=== PATIENT | female | born 1955 | race Caucasian/White ===

== ENCOUNTER → 2017-12-25 10:46 | Outpatient (CLI) | payer OTHER, SELFPAY ==
[2017-12-25 11:18] VITALS: BP 170/86; PULSE 73; RESP 16; TEMP 37.1; O2SAT 100; BMI 21.9
[2017-12-25] MEDS: Zoledronic Acid 5 MG 100 ML 200 MG IV (11:33)
== END ==
PROVIDERS: Family Provider Family Medicine; PCP Family Medicine; Visit Provider Family Medicine
DX: M80.00XA Age-related osteoporosis with current pathological fracture, unspecified site, initial encounter for fracture (principal)
CPT/HCPCS: 96365; J7050; A4216; J3489

== ENCOUNTER → 2018-04-15 11:26 | Outpatient (CLI) | payer OTHER, SELFPAY ==
[2018-04-15 16:07] LABS: Erythrocyte Sedimentation Rate 6 mm/hr (0-30)
[2018-04-15 18:39] LABS: CRP < 2.90 mg/L (0.0-3.0); Rheumatoid Factor < 10.0 IU/mL (<15)
[2018-04-18 09:24] LABS: CCP IgG Antibodies 13 units (0-19)
== END ==
PROVIDERS: Family Provider Family Medicine; PCP Family Medicine; Visit Provider Family Medicine
DX: M25.50 Pain in unspecified joint (principal); M79.1 Myalgia
CPT/HCPCS: 36415; 85652; 86038; 86140; 86200; 86431

== ENCOUNTER → 2018-05-21 12:29 | Outpatient (CLI) | payer OTHER, SELFPAY | PROVIDERS: Family Provider Family Medicine; PCP Family Medicine; Visit Provider Family Medicine | DX: M80.00XA Age-related osteoporosis with current pathological fracture, unspecified site, initial encounter for fracture (principal); Z12.31 Encounter for screening mammogram for malignant neoplasm of breast | CPT/HCPCS: 77063; 77067; 77080 ==

== ENCOUNTER → 2018-07-07 10:46 | Outpatient (CLI) | payer OTHER, SELFPAY ==
--- NOTE | 2018-07-07 10:48 | VDLE_ITS ---
Reason For Study: Follow up RLE DVT previous exam not available RIGHT LEFT GSV is normal. CFV is compressible, spontaneous, phasic, CFV, FV, PopV, T/P Trunk are partially competent, and demonstrates normal compressible with bright intaluminal echoes, augmentation. diminished blood flow and response to augmentation. Consistent with Chronic clot. PTV is compressible. RT PerV is compressible. Procedure Exam performed in department. A preliminary report was called and/or faxed to Dr. Birmingham. Interpretation Summary Chronic venous changes are noted in the right common femoral vein, femoral vein, popliteal vein, and tibio-peroneal trunk, which are partially compressible and demonstrate bright intraluminal echogenicity. The right posterior tibial vein and peroneal vein are patent and compressible. The right greater saphenous vein appears patent and compressible segmentally. Ordering Physician: Yara Birmingham Referring Physician: Yara Birmingham Performed By: Emelina Ramírez RVT and Student
== END ==
PROVIDERS: Family Provider Family Medicine; PCP Family Medicine; Referring Provider Family Medicine; Visit Provider Family Medicine
DX: I82.411 Acute embolism and thrombosis of right femoral vein (principal); I82.431 Acute embolism and thrombosis of right popliteal vein
CPT/HCPCS: 93971

== ENCOUNTER → 2018-07-10 11:29 | Outpatient (CLI) | payer OTHER, SELFPAY ==
[2018-07-10 18:12] LABS: Absolute Lymphocyte Count 0.75 X10^3/ul (0.83-4.51); Absolute Neutrophil Count 2.4 X10^3/uL (2.0-7.7); Basophil# 0.03 X10^3/uL; Basophil% 0.8 % (0-1); Eosinophil# 0.05 X10^3/uL; Eosinophils% 1.4 % (0-5); Hemoglobin 10.4 g/dl (12.0-15.0); Lymphocyte # 0.75 X10^3/ul (4.0); Lymphocyte % 20.3 % (19-41); Mean Corp Hgb Conc 32.5 g/gl (32-36); Mean Corpuscular Hgb 26.4 pg (27.0-32.0); Mean Corpuscular Volume 81.2 fL (81-99); Mean Platelet Vol. 10.7 fl (6.2-12.0); Monocyte# 0.47 X10^3/uL; Monocyte% 12.7 % (0-10); Neutrophil % 64.8 % (47-70); Platelet Count 276 K/mm3 (150-450); RBC Distribution Width CV 16.6 % (11.6-14.6); RBC Distribution Width SD 48.4 fl (35.1-43.9); Red Blood Count 3.94 M/mm3 (4.2-5.4); White Blood Count 3.7 K/mm3 (4.4-11.0)
[2018-07-10 18:13] LABS: POSITIVE COUNT NO; POSITIVE DIFFERENTIAL NO; POSITIVE MORPHOLOGY NO
== END ==
PROVIDERS: Family Provider Family Medicine; PCP Family Medicine; Visit Provider Family Medicine
DX: J44.9 Chronic obstructive pulmonary disease, unspecified (principal); I82.511 Chronic embolism and thrombosis of right femoral vein; I82.591 Chronic embolism and thrombosis of other specified deep vein of right lower extremity
CPT/HCPCS: 36415; 80053; 85025

== ENCOUNTER → 2018-07-23 07:41 | Outpatient (CLI) | payer OTHER, SELFPAY ==
--- NOTE | 2018-07-23 07:45 | CT_ITS ---
STUDY: LOW DOSE CT LUNG CANCER SCREENING REASON FOR EXAM: Female, 63 years old. 40 pack-year smoking history now stopped. History of colorectal cancer with chemotherapy and radiation. RADIATION DOSAGE (If Supplied By Facility): CTDIvol = ( 2.01 ) mGy, DLP = ( 70.47 ) mGycm TECHNIQUE: No contrast was administered. Low dose technique was utilized (average mAS-38 and kVp 120). 1.25 mm axial source images with a slice interval of 1.25-mm were reconstructed in lung windows. 2.5 mm axial source images with a slice interval of 2.5-mm were reconstructed in lung windows. 5.0 mm axial source images with a slice interval of 5.0-mm were reconstructed in soft tissue windows. Nodule measured using lung windows on PACS and/or independent workstation with automated measurement of minimum and maximum diameter. Nodule measurement reported as average diameter rounded to the nearest whole number. Growth is defined as an increase ins size of greater than 1.5 mm. COMPARISON: CTA of the chest, December 27, 2013. NODULES: Nodule #: 1 Density: Solid Lung location: Right upper lobe: 0.4 cm from pleura Location in series: Series Number: 2 Image: 44 Size - D1 x D2 mm: 2 x 2 mm: 2 mm average diameter Margin: Smooth Shape: Rounded Calcification: No Fat: No Temporal comparison: None Nodule #: 2 Density: Solid Lung location: Left upper lobe: 0.2 cm from pleura Location in series: Series Number: 2 Image: 46 Size - D1 x D2 mm: 3 x 2 mm: 3 mm average diameter Margin: Smooth Shape: Oval Calcification: No Fat: No Temporal comparison: None Nodule #: 3 Density: Solid Lung location: Left upper lobe: 0.6 cm from pleura Location in series: Series Number: 2 Image: 100 Size - D1 x D2 mm: 5 x 2 mm: 5 average diameter Margin: Smooth Shape: Stellate Calcification: No Fat: No Temporal comparison: Stable Nodule #: 4 Density: Sagittal Lung location: Right upper lobe: 0.5 cm from pleura Location in series: Series Number: 2 Image: 101 Size - D1 x D2 mm: 2 x 2 mm: 2 mm average diameter Margin: Smooth Shape: Round Calcification: No Fat: No Temporal comparison: Stable Nodule #: 5 Density: Solid Lung location: Left upper lobe: 3.2 cm from pleura Location in series: Series Number: 2 Image: 1 Size - D1 x D2 mm: 6 x 6 mm: 6 average diameter Margin: Smooth Shape: Round Calcification: Yes Fat: No Temporal comparison: Stable Total lung nodules (excluding granulomas): 4 Emphysema: There is diffuse emphysematous changes lungs. There is stable scarring in both upper lobes. There are scattered blebs throughout both lungs unchanged from the prior exam. Endobronchial lesion: None Aorta: There is atherosclerotic tortuosity of the aorta without aneurysm. Coronary arteries: There are stable coronary artery calcifications. Heart: The heart is normal in size. Pulmonary artery: Normal Mediastinal nodes: There are calcified mediastinal and right hilar lymph nodes. Other chest and abdominal findings: There are minimal degenerative changes of the thoracic spine CT/Low Dose CT Lung Screening IMPRESSION: Lung-RADS category 2 - Continue annual screening with LDCT in 12 months. IMPORTANT NOTES FOR USE: ACR Lung-RADS Version 1.0 Assessment Categories Release Date: January 17, 2014 Category: Coded 0-4 bases on nodule(s) with highest degree of suspicion. Negative screen is defined as categories 1 and 2; a positive screen is defined as categories 3 and 4. Category 3 and 4A nodules that are unchanged on interval CT should be coded as category 2, and individuals returned to screening in 12 months. Category 4X: Category 3 or 4 nodules with additional imaging findings that increase the suspicion of lung cancer, such as spiculation, GGN that doubles in size in 1 year, enlarged lymph notes, etc. Category Modifiers: S (significant finding unrelated to lung cancer) and C (prior history of treated lung cancer) may be added to the 0-4 Lung-RADS Electronically Signed: Julius Zeng DO at 21:49 EDT Tel [phone], Service support ,
== END ==
PROVIDERS: Family Provider Family Medicine; PCP Family Medicine; Referring Provider Family Medicine; Visit Provider Family Medicine
DX: Z12.2 Encounter for screening for malignant neoplasm of respiratory organs (principal); Z87.891 Personal history of nicotine dependence
CPT/HCPCS: G0297

== ENCOUNTER → 2018-12-25 10:49 | Outpatient (CLI) | payer OTHER, SELFPAY ==
[2018-12-25 11:03] VITALS: BP 151/73; PULSE 65; RESP 16; TEMP 36.8; O2SAT 98
[2018-12-25] MEDS: Zoledronic Acid 5 MG 100 ML 300 MG IV (11:16)
== END ==
PROVIDERS: Family Provider Family Medicine; PCP Family Medicine; Referring Provider Family Medicine; Visit Provider Family Medicine
DX: M80.00XA Age-related osteoporosis with current pathological fracture, unspecified site, initial encounter for fracture (principal)
CPT/HCPCS: 96365; A4216; J3489

== ENCOUNTER → 2019-02-12 08:54 | Outpatient (CLI) | payer OTHER, SELFPAY ==
[2019-02-11 15:41] LABS: Anion Gap 10 (5-15); BUN 6 mg/dL (7-18); BUN/Creat Ratio 7.3 RATIO (10-20); Calcium,Total 8.6 mg/dL (8.5-10.1); Chloride 103 mmol/L (98-107); Creatinine, Serum 0.82 mg/dL (0.55-1.02); EST Glomerular Filtration Rate 75 mL/min (>60); Est Glom Filt Rate - Afr Amer 91 mL/min (>60); Glucose 85 mg/dL (74-106); Potassium 3.2 mmol/L (3.5-5.1); Sodium Level 140 mmol/L (136-145)
[2019-02-12] VITALS (7 sets, daily range): BP systolic 125–145; BP diastolic 57–73; PULSE 70–87; RESP 14–16; TEMP 36.2–36.9; O2SAT 97–100; BMI 21.1
== END ==
PROVIDERS: Family Provider Family Medicine; PCP Family Medicine; Referring Provider Family Medicine; Visit Provider Family Medicine
DX: D64.9 Anemia, unspecified (principal); I10 Essential (primary) hypertension
CPT/HCPCS: 36415; 36430; 80048; 86850; 86900; 86920; 86922; J7040; P9016; A4216

== ENCOUNTER → 2019-02-22 | Outpatient (CLI) | payer OTHER, SELFPAY ==
[2019-02-12 09:11] VITALS: BMI 21.1
--- NOTE | 2019-02-22 12:13 | CT_ITS ---
STUDY: CT CHEST/THORAX WITH CONTRAST REASON FOR EXAM: Female, 63 years old. Colon cancer. Check for metastatic disease. RADIATION DOSAGE (If Supplied By Facility): CTDIvol = ( 5.52 ) mGy, DLP = ( 170.80 ) mGycm TECHNIQUE: Transaxial imaging was performed following intravenous administration of 100 IV Isovue 300. Multiplanar coronal and sagittal images were reformatted. Individualized dose optimization techniques were used for this CT. COMPARISON: Low-dose screening CT chest July 23, 2018. FINDINGS: Centrilobular emphysematous changes again seen, predominating in the mid to upper lung zones. Stable pleural-parenchymal scarring in the lung apices, with a curvilinear component again extending into the anterior left upper lobe. Focal 1-2 mm nodular components of this scarring in the upper lobes unchanged. Minor curvilinear scarring also in the right middle lobe. Stable mildly irregular shape subcentimeter focal density in the lateral periphery of the left upper lobe on series 4 image 51. Stable subcentimeter calcified granuloma in the inferior periphery of the right upper lobe at the midlung. 2 mm nodular density seen previously in the periphery of the right upper lobe is no longer apparent. No new demonstrated infiltrate, mass, or nodule There is no demonstrated pleural abnormality. The heart size is upper normal. There is some calcification in the aortic and mitral valve annuli. Normal pericardium. There are stable calcifications of the coronary arteries. Normal mediastinum. There is stable calcified lymph nodes in the left hilum. Stable elongated, eccentric along the upper lobe branch of the left pulmonary artery calcification. There is stable atherosclerotic calcification of the aortic arch and descending thoracic aorta. The patient is positioned with a mild upper mid thoracic dextroscoliosis. Occasional coarse calcifications again seen in the tissues of the breast. Stable exophytic cortical cyst at the upper pole of the right kidney. CT/Chest WITH Contrast IMPRESSION: Stable enhanced CT Chest examination since July 23, 2018 with no new findings to suggest thoracic metastatic disease. Electronically Signed: Terence Hoang MD at 13:20 EDT , Service support ,
== END | disposition home or self-care (01) ==
LOC: CT 12:12
PROVIDERS: Family Provider Family Medicine; PCP Family Medicine; Referring Provider Family Medicine; Visit Provider Family Medicine
DX: R13.10 Dysphagia, unspecified (principal)
CPT/HCPCS: 71260; Q9967; A4216

== ENCOUNTER → 2019-03-29 10:57 | Outpatient (CLI) | payer OTHER, SELFPAY ==
[2019-02-12 09:11] VITALS: BMI 21.1
[2019-03-29 12:18] LABS: Magnesium 1.6 mg/dL (1.6-2.6)
== END ==
LOC: LAB.FUTURE 09-29 00:33 → BFHLAB 10-29 14:35
PROVIDERS: Family Provider Family Medicine; PCP Family Medicine; Visit Provider Family Medicine
DX: E83.42 Hypomagnesemia (principal)
CPT/HCPCS: 36415; 83735

== ENCOUNTER 2019-05-28 13:24 | Emergency (ER) | payer OTHER, SELFPAY ==
[2019-02-12 09:11] VITALS: BMI 21.1
[2019-05-28 13:25] VITALS: BP 134/61; PULSE 95; RESP 18; TEMP 36.3; O2SAT 96; BMI 18.3
[2019-05-28] MEDS: 0.9% Normal Saline 1,000 ML 1000 ML IV (15:30)
[2019-05-28 15:31] VITALS: BP 137/57; PULSE 90; RESP 12; O2SAT 99
[2019-05-28 15:43] LABS: Absolute Lymphocyte Count 0.59 X10^3/uL (0.83-4.51); Absolute Neutrophil Count 5.9 X10^3/uL (2.0-7.7); Basophil# 0.03 X10^3/uL; Basophil% 0.4 % (0-1); Eosinophil# 0.06 X10^3/uL; Eosinophils% 0.8 % (0-5); Hematocrit 29.6 % (37-47); Hemoglobin 10.1 g/dL (12.0-15.0); Lymphocyte # 0.59 X10^3/ul (4.0); Lymphocyte % 8.1 % (19-41); Mean Corp Hgb Conc 34.1 g/dL (32-36); Mean Corpuscular Hgb 29.3 pg (27.0-32.0); Mean Corpuscular Volume 85.8 fL (81-99); Mean Platelet Vol. 8.5 fl (6.2-12.0); Monocyte# 0.69 X10^3/uL; Monocyte% 9.4 % (0-10); NRBC Flagged by Analyzer 0 % (0-5); Neutrophil # 5.92 X10^3/uL (2.7-7.7); Neutrophil % 80.9 % (47-70); POSITIVE DIFFERENTIAL YES; Platelet Count 288 K/mm3 (150-450); RBC Distribution Width CV 14.2 % (11.6-14.6); RBC Distribution Width SD 43.6 fl (35.1-43.9); Red Blood Count 3.45 M/mm3 (4.2-5.4); White Blood Count 7.3 K/mm3 (4.4-11.0)
[2019-05-28 16:02] LABS: Lactic Acid 0.6 mmol/L (0.4-2.0)
[2019-05-28 16:12] LABS: Anion Gap 11 (5-15); BUN 4 mg/dL (7-18); BUN/Creat Ratio 9.5 RATIO (10-20); Calcium,Total 7.3 mg/dL (8.5-10.1); Chloride 102 mmol/L (98-107); Creatinine, Serum 0.42 mg/dL (0.55-1.02); EST Glomerular Filtration Rate 163 mL/min (>60); Est Glom Filt Rate - Afr Amer 197 mL/min (>60); Estimated Creatinine Clearance 96.46 ml/min; Glucose 84 mg/dL (74-106); Potassium 2.6 mmol/L (3.5-5.1); Sodium Level 140 mmol/L (136-145)
[2019-05-28 16:15] LABS: Platelet Estimate ADEQUATE (ADEQ)
[2019-05-28 16:18] LABS: Anisocytosis RARE
--- NOTE | 2019-05-28 17:40 | NURSING ---
DR CABELLO IN ER
--- NOTE | 2019-05-28 17:40 | NURSING ---
MED SURG DESTINEY DIARRHEA, DEHYDRATION, HYPOKALEMIA, JYPOMAGNESEMIA
--- NOTE | 2019-05-28 17:41 | ED.DCSUM_ITS ---
- ER Visit Summary Date of Service: 05/28/19 Chief Complaint: [Diarrhea] History of Present Illness: The patient is a 64 F [resents the emergency department with diarrhea started yesterday. Patient states she was treated for C. difficile 1 month ago. Patient also states that her fingers have been curling and she is worried that her potassium and magnesium will be low. Patient denies any nausea or vomiting. She denies any fevers. Denies recent antibiotic other than what she was treated for her C. difficile with and she does not know what she was treated with. She denies significant abdominal pain although she describes some mild cramping.] Patient apparently sat in the parking lot for about 3 hours prior to coming into the emergency department she was covered in stool. Physical Examination: HEENT-PERRLA, EOMI. Cranial nerves II through XII grossly intact. TMs clear. Mucous membranes moist. No adenopathy. Cardiovascular-regular rate and rhythm without murmur or ectopy Lungs-clear to auscultation, chest wall stable without crepitus or subcu emphysema Abdomen-normoactive bowel sounds, soft, nontender, no rebound or rigidity, no peritoneal signs. Extremities-intact ?4, normal range of motion, normal pulses, atraumatic [] Test Results: CBC with differential shows a white count 7.3, hemoglobin 10, hematocrit 29.6. Chemistry showed a sodium of 2.6 and magnesium of 1.0. C. difficile and enteric pathogens ordered and pending. [] Emergency Department Course and Treatment: [Was given a liter normal same fluid bolus. Patient was treated with 60 mEq of potassium chloride p.o. Patient was ordered to grams of magnesium IV. Patient was started on vancomycin p.o.] Treatment Plan: [Admit] Disposition: [Admit] Impression: [Diarrhea-suspect C. difficile Dehydration Hypokalemia Hypomagnesemia] This note was generated with [employer] dictation software. It may contain incorrect words, spelling, and punctuation that were not noted in review of the chart prior to signing ED Disposition - Plan for ED Patient: Referrals: Yara Birmingham DO [Primary Care Provider] -
--- NOTE | 2019-05-28 18:04 | ED.DCSUM_ITS ---
- ER Visit Summary Date of Service: 05/28/19 Chief Complaint: [Addendum to initial dictation] History of Present Illness: The patient is a 64 F [patient presented with diarrhea and suspected C. difficile. Patient initially agreed to admission but after speaking with hospitalist decided that she wanted to be discharged and will sign out AGAINST MEDICAL ADVICE. Patient understands that I am concerned about severe infection and dehydration and electrolyte abnormality which could be potentially life-threatening. I will order patient vancomycin for suspected C. difficile. Patient advised to push fluids. Patient advised to return at any time if worsening symptoms.] Physical Examination: [] Test Results: [] Emergency Department Course and Treatment: [] Treatment Plan: [] Disposition: [Signed out AGAINST MEDICAL ADVICE] Impression: [Diarrhea Dehydration Hypokalemia Hypomagnesemia] This note was generated with [employer] dictation software. It may contain incorrect words, spelling, and punctuation that were not noted in review of the chart prior to signing
--- NOTE | 2019-05-28 18:09 | ED.DEP ---
ED Disposition - Plan for ED Patient: Instructions: DIARRHEA, Unk Cause (Adult) Report Pendg Prescriptions: Vancomcyin 125mg/5mL PO Liquid 125 mg PO Q6 #200 po.syringe Prescription Printed Referrals: Yara Birmingham DO [Primary Care Provider] - 1-2 Days if not improving
--- NOTE | 2019-05-28 18:30 | ED.RN ---
PT REFUSED ORAL AND IV MEDICATION AFTER SEVERAL ATTEMPTS. LEFT AMA. PT LEFT WITH SHIRT, BRA, AND SHOES THAT SHE CAME IN WITH. PT IN PAPER SCRUBS AND DEPENDS.
--- NOTE | 2019-05-28 18:35 | PCM.HOSP.N ---
Hospitalist Note I was asked to see the patient for admission for her hypokalemia, hypomagnesemia and possible C. difficile colitis. Patient gave a very tangential story in regards to her having diarrhea, was recently an inpatient psychiatric unit and was treated for psychiatric reasons but was sitting next to someone that is self-reported that she had C. difficile colitis. Patient approximately 2 weeks ago was treated for C. difficile and had granules that she would take to help with her C. difficile. I explained the patient that we treat her with a vancomycin if she were to test positive for C. difficile but she said that she would only take it with these granules. I told her that had no idea what those granules are but I would not treat her with anything such as loperamide or low until to help slow down her bowels and just treat the C. difficile. Patient stated that she she did not receive the granules that she would just lay down and I. I asked her if she was saying that she was wanting to commit suicide and she denied that but became offended by me asking if she was suicidal. I also did clarify if she was homicidal because apparently she states that she was kicked out of her house and had been living in her car last night. She went on tangent about how she went to the emergency room and was talking her horn and no one came to her that she had a walk from the parking lot to the emergency room. She is also expressed being upset with the triage nurse and that they did not immediately put her in a room. The patient became overall upset and the fact that I would not be prescribing her the granules and that she would refuse to take vancomycin if she did not have the granules. I told her that that is not the standard of care and if she does have C. difficile then the treatment would be oral vancomycin as well as repleting her profoundly diminished electrolytes. Patient stated that she would not want that nor would want to stay. I informed the emergency room physician, Dr. Ceja of this. If patient wishes to stay then we will happily admit it is not my recommendation the patient leave but received necessary antibiotics as well as repletion of her electrolytes. Patient declined further history and exam. Code Visit Office Visits / Consults: [id number] OP Consult L2
--- NOTE | 2019-05-28 19:12 | ED.RN ---
Called pt to inform of positive c-diff results. She did not answer but a message was left encouraging her to return the call to ED.
== END 2019-05-28 18:33 | disposition left against medical advice (07) ==
PROVIDERS: Emergency Provider Emergency Medicine; Family Provider Family Medicine; PCP Family Medicine
DX: R19.7 Diarrhea, unspecified (principal); E86.0 Dehydration; E87.6 Hypokalemia; E83.42 Hypomagnesemia; Z86.19 Personal history of other infectious and parasitic diseases; Z53.21 Procedure and treatment not carried out due to patient leaving prior to being seen by health care provider
CPT/HCPCS: 80048; 83605; 83735; 85025; 87493; 87506; 99283; J7030; A4216

== ENCOUNTER → 2019-07-20 12:04 | Outpatient (CLI) | payer OTHER, SELFPAY ==
[2019-02-12 09:11] VITALS: BMI 21.1
[2019-07-20 15:35] LABS: Magnesium 1.6 mg/dL (1.6-2.6); Potassium 4.2 mmol/L (3.5-5.1)
== END ==
LOC: LAB.FUTURE 12:04 → BFHLAB 10-29 14:33
PROVIDERS: Family Provider Family Medicine; PCP Family Medicine; Visit Provider Family Medicine
DX: E83.42 Hypomagnesemia (principal); E87.6 Hypokalemia
CPT/HCPCS: 36415; 83735; 84132

== ENCOUNTER → 2019-11-19 12:00 | Outpatient (CLI) | payer OTHER, SELFPAY ==
[2019-09-30 14:53] VITALS: BMI 20.4
== END ==
PROVIDERS: PCP Family Medicine; Visit Provider Family Medicine
DX: R19.7 Diarrhea, unspecified (principal)
CPT/HCPCS: 83630; 87177; 87209; 87506

== ENCOUNTER 2021-01-17 09:05 | Observation (INO) | payer MEDICARE, SELFPAY ==
[2019-09-30 14:53] VITALS: BMI 20.4
[2021-01-17 08:46] VITALS: BP 156/70; PULSE 92; RESP 18; TEMP 36.8; O2SAT 94
--- NOTE | 2021-01-17 09:11 | PCM.HP.STD ---
[facility] - General General Date of Admission: 01/17/21 HPI Narrative MAMI COLEMAN, is a 65 F who presents presents to outside hospital with falls. Patient got up yesterday and today and just felt dizzy and fell. Denies hitting her head. Presented to the outside hospital where they did head CT, CT of her neck, hip x-ray as well as chest x-ray which were all unremarkable. Lab work was also unremarkable. Patient has a longstanding history of debility and has been essentially using a walker for anywhere between the last 3 to 6 years. As to why she uses a walker she states that she is weak. Patient has noticed over the past month her handwriting has gotten sloppier and she has been having tremors in her hands. She has never seen a neurologist before. [facility] Medical History COPD (chronic obstructive pulmonary disease) DJD (degenerative joint disease), lumbar Essential hypertension Family history of congestive heart failure History of cancer History of DVT (deep vein thrombosis) Lung nodule, multiple Neuropathy Osteoarthritis Simple renal cyst Home Medications labetalol 100 mg PO BID 11/13/13 [History Last Taken 12/15/13] omeprazole 40 mg PO DAILY 12/27/13 [History Last Taken Unknown] calcium carbonate 1 tab PO BID 12/25/17 [History Last Taken Unknown] acetaminophen 500 mg tablet 500 mg PO Q6H PRN 09/29/19 [History Last Taken Unknown] aspirin 81 mg tablet,delayed release 81 mg PO DAILY 09/29/19 [History Last Taken Unknown] diazepam 2 mg tablet 2 mg PO BID PRN 09/29/19 [History Last Taken Unknown] zolpidem 12.5 mg tablet,extended release,multiphase 12.5 mg PO QHS PRN 09/29/19 [History Last Taken Unknown] gabapentin 300 mg capsule 300 mg PO TID 09/30/19 [History Last Taken Unknown] irbesartan 75 mg tablet 75 mg PO DAILY 09/30/19 [History Last Taken Unknown] lactobacillus combination no.9 4 billion cell capsule 4,000 mmu cells PO DAILY 09/30/19 [History Last Taken Unknown] magnesium oxide 400 mg (241.3 mg magnesium) tablet 400 mg PO DAILY tab 09/30/19 [History Last Taken Unknown] medical marijuana PO 09/30/19 [History Last Taken Unknown] potassium chloride 20 mEq oral packet 20 meq PO .QOD ea 09/30/19 [History Last Taken Unknown] sodium chloride 5 % eye ointment 1 applic OPHTHALMIC BID 09/30/19 [History Last Taken Unknown] Allergy/AdvReac Type Severity Reaction Status Date / Time lorazepam [From Ativan] AdvReac Severe tremors Verified 09/30/19 14:54 oxybutynin AdvReac Severe Dry Mouth Verified 09/30/19 14:54 acetaminophen [From Vicodin] AdvReac Unknown Verified 09/30/19 14:54 amitriptyline HCl AdvReac Unknown Verified 09/30/19 14:54 [From Elavil] amlodipine besylate AdvReac Unknown Verified 09/30/19 14:54 [From Norvasc] ciprofloxacin [From Cipro] AdvReac Unknown Verified 09/30/19 14:54 ciprofloxacin HCl AdvReac Unknown Verified 09/30/19 14:54 [From Cipro] erythromycin base AdvReac Unknown Verified 09/30/19 14:54 [Erythromycin Base] hydrocodone bitartrate AdvReac Unknown Verified 09/30/19 14:54 [From Vicodin] lisinopril AdvReac Unknown Verified 09/30/19 14:54 metoprolol [From Lopressor] AdvReac Unknown Verified 09/30/19 14:54 morphine AdvReac Unknown Verified 09/30/19 14:54 Family History Mother Breast cancer Colon cancer Hypertension Congestive heart failure Sister CAD (coronary artery disease) Myocardial infarction Other Family history of congestive heart failure Surgical History History of hip surgery History of hysterectomy History of kyphoplasty History of left hip replacement Social History Smoking Status: Former smoker alcohol intake: never substance use type: other details: medical marijuana caffeine: Yes ROS ROS Narrative Patient is debilitated, sloppier handwriting, tremors. All review of systems were negative except as mentioned above in the history of present illness and the other review of systems. Vital Signs Vital Signs Vital Signs: 04/28/21 08:46 Temperature 36.8 C Temperature Source Oral Pulse Rate 92 Respiratory Rate 18 Blood Pressure 156/70 H Blood Pressure Mean 98 Blood Pressure Source Monitor Blood Pressure Position Semi-Fowlers Blood Pressure Location Left Arm Pulse Ox 94 Oxygen Delivery Method Room Air Physical Exam Const alert General Appearance: cooperative HEENT normocephalic, head/scalp atraumatic and moist oral mucous membranes Eyes PERRL Eyes Narrative: Impaired saccades vertically. Neck no lymphadenopathy and no carotid bruits Cardio regular rate, regular rhythm, S1 normal heart sound and S2 normal heart sound GI normal to inspection, nondistended, normoactive bowel sounds, soft to palpation, non-tender and non-distended Extremity normal capillary refill and no clubbing, cyanosis or edema Skin General Skin Exam: no breakdown and turgor normal Lesions: no lesions Rashes: no rashes Neuro CN's II-XII intact bilaterally Neuro Narrative: Coordination abnormal with [id number] patient with ataxia bilaterally upper extremity Motor Exam: strength 5/5 throughout Psych Appearance: appropriate Mood & Affect: flat affect Lab / Micro Data Attestation: I reviewed the patient's lab results. Labs: CBC showed white count 3.8, hemoglobin 12.6 and platelets of 287. Urinalysis was unremarkable. BMP showed a sodium 138, glucose of 90, potassium 4.1 and creatinine 0.61. The hospital, chest x-ray showed no acute process, head CT showed no acute process, CT neck showed no acute process. X-rays of the hip showed remote fracture of the right pubic rami fracture of the right hip with hardware removed. Left hip prosthesis with satisfactory appearance. Assessment & Plan Assessment/Plan (1) Physical debility: Status: Acute Code(s): R53.81 - Other malaise (2) Malnutrition: Status: Acute Code(s): E46 - Unspecified protein-calorie malnutrition Plan: No focal deficits to suggest an acute stroke therefore no additional acute neurologic work-up will be performed during this hospitalization. PT OT evaluate and treat. Patient will need shelter facility upon discharge. Patient with progressive decline in fairly young age where she has been using a walker for anywhere between 3 to 6 years. Patient had a fall in 2017 where she did suffer hip fractures. I am concerned the patient has a neurodegenerative process such as Parkinson's, Parkinson's SARS-CoV-2 multiple sclerosis. Recommend patient follow-up with a movement disorder specialist at [facility] or [facility] for more thorough evaluation and diagnosis and what medications would be of help. Consult nutrition for further recommendations VTE prophylaxis not indicated as patient is currently observation status. OBSV E&M: [id number] Initial observation care L3
--- NOTE | 2021-01-17 09:26 | NURSING ---
pt noted to be drowsy and unable to accurately complete med list. PCP office called, requested med list. primary RN aware
[2021-01-17] MEDS: Losartan Potassium 25 MG Tablet PO (12:40)
[2021-01-17] MEDS: Magnesium Chloride 64 MG Delay Rel.Tablet 128 MG PO (12:42)
[2021-01-17] MEDS: Pantoprazole Sodium 40 MG Tablet PO (12:42)
[2021-01-17] MEDS: Aspirin E.C. 81 MG Tablet PO (12:42)
[2021-01-17] MEDS: Calcium Carbonate 500 MG Tablet PO ×2 (12:43→17:27)
[2021-01-17] MEDS: Labetalol 100 MG Tablet PO (12:43)
[2021-01-17] MEDS: Gabapentin 300 MG Capsule PO ×2 (12:45→17:27)
[2021-01-17] MEDS: oxyCODONE 5 MG Tablet PO (12:54)
--- NOTE | 2021-01-17 14:52 | CASEMGMT ---
JEREMIAH Note JEREMIAH and JEREMIAH Llamas met with patient in her room. Patient was observed to be eating. JEREMIAH introduced self to patient. Patient did not engage in conversation with this job specification writer but did give permission for staff to speak to her , Christos Rice. JEREMIAH called patient's , Christos Rice. Christos stated that his choice for SNF was [facility] as it was close to their home. Christos said that in 2016 patient had been at [facility] and it was not positive. Christos said that patient was at [facility] for period of 2 1/2 days and then texted him to come and get her so he went to [facility] and I showed the nurse the text and she came home. Christos said that patient previously broke her left hip in [phone] and 1 year earlier had broken his right hip. Christos said that in the past patient has had PICC line related to an infection in her leg that involved patient receiving antibiotics. Christos said that patient had fallen 4 times in the past 3 weeks but when she fell this morning, at approximately 2:30am, she lost bladder control and was on the floor and he was unable to get her up so he called the squad. Christos said that previously he had been able to assist patient in getting up. Christos said that patient has 'no muscle mass as she won't get up. Christos said that patient uses walker to ge to the bedroom, bathroom, her chair and bed and she does this all day long. Christos said that patient has not eaten for the past 2 days. Chrisots said that he generally fixes patient frozen meals and she eats some of it but then gives it to me to finish off. Christos said that in the past patient was diagnosed with terminal cancer in 2012 and given 3 months to live without treatment but 1 year with treatment. Christos said that patient had 8 rounds of chemo. Christos said that he feels that the radiation trashed her lungs. Chrsitos said that patient had a mass by her uterine area when she was diagnosed with cancer. Christos reports his current concern is related to patient sitting for the past 4 months' and her not having any muscle mass. Christos said that patient has no advanced directives ( HCPOA or Living Will). He reports he is in support of patient going to SNF for therapy. JEREMIAH called [facility] and spoke to Alen. She advised that [facility] has open beds. SW indicated family is requesting that patient go to [facility] SNF at discharge. JEREMIAH reviewed patient's presentation with Alen. Jeremiah faxed referral packet including face sheet, OT notes, History and Physical to [facility] for their consideration. Faxed to [phone]
--- NOTE | 2021-01-17 15:45 | NT.THERAPY_ITS ---
Nutrition Therapy Report - History Nutrition Services has been consulted to:: Manage nutrient details of diet order Current diet / nutrition support order:: Regular diet. 120ml ensure enlive 4 times per day w/ medpass--no chocolate - Anthropometric Measurements Height:: 5 ft 1 in Weight:: 48.2 kg Body Mass Index (BMI):: 20.0 - Assessment Food / Nutrition-Related History:: Pt reports decreased PO/anthony and wt loss over the past year. Pt has moderate muscle and fat wasting in the face, hands, arms +NFPA. Reports UBW~113 lbs about 1 year ago; calculated ~6% wt loss x 12 months. Pt denies difficulty chewing/swallowing however, seems weak to feed herself and appeared to struggle with lunch meal today and only look~25% tray. Assisted pt with lunch order and returned after lunch to note only~25% of meal consumed. Pt agreeable to ensure enlive--no chocolate and only took a few sips of ensure w/ lunch meal. PO is clearly inadequate and meeting <50% estimated nutrition needs. - Nutrition Diagnosis Problem / Etiology / Signs & Symptoms (PES):: Moderate pro/agustin malnutrition in the context of acute illness related to possible increased energy expenditure, debility and inadequate oral intake as evidenced by moderate muscle and fat wasting in the face, hands, arms +NFPA, ~6% wt loss x 12 months, only~25% of lunch meal consumed today and meeting <50% estimated nutrition needs. Evidence of Malnutrition Exists:: Yes Moderate PCM:: Acute Illness - Nutrition Intervention Nutrition Prescription:: Estimated nutrition needs for repletion~6165-2902 kcal (35 kcal/Kg) and ~60-65 gm pro (1.3 gm pro/kg) per day. Estimated fluid needs~1209-0640 ml/day (33 ml/Kg). - Food / Nutrient Delivery Interventions Summary of nutrition intervention:: 240 ml ensure enlive TID w/ meals (1050 calories and 60 gm pro). Possibly consult SENIOR NUCLEAR MEDICINE TECHNOLOGIST for swallowing eval. Will continue liberalized regular diet and encourage intake at meals. Will change ensure to w/ meals--no chocolate. Assist with meals as needed to optimize intake. Will monitor PO as established, wt, labs and follow-up. Nutrition support ordered as / adjusted to:: May need to consider if PO does not improve and wt continues to decline. Nutrition education provided?: Yes - MNT Monitoring Further MNT monitoring and evaluation required?: Yes MNT Follow-up in:: 3-5 days
[2021-01-17 17:19] VITALS: BP 85/42; PULSE 93; RESP 16; TEMP 37.1; O2SAT 91
[2021-01-17 17:28] VITALS: BP 84/44; PULSE 92
[2021-01-17 18:49] VITALS: BP 93/52; PULSE 92; RESP 16; TEMP 37.1; O2SAT 91
--- NOTE | 2021-01-17 19:02 | NURSING ---
This nurse bladder scanned pt b/c she only voided once this afternoon/evening and missed measuring hat. Bladder scanned for 289. Will pass along to monitor for night filler.
[2021-01-17 19:31] VITALS: BP 90/55; PULSE 89; RESP 16; TEMP 36.9; O2SAT 92
[2021-01-17 21:22] VITALS: BP 92/58; PULSE 86; RESP 16; TEMP 36.5; O2SAT 92
[2021-01-17] MEDS: 0.9% Saline Lock 10 ML Syringe IV (21:34)
[2021-01-18 03:11] VITALS: BP 140/70; PULSE 85; RESP 16; TEMP 36.6; O2SAT 94
[2021-01-18 05:20] VITALS: BP 144/81; PULSE 77
--- NOTE | 2021-01-18 09:08 | CASEMGMT ---
Social Work Note SW placed a call to Tatum at [facility] to inquire about referral. Tatum states she is able to accept pt and will submit for pre-cert. Plan: [facility] pending pre-cert Lotus Noriega BUFFING WHEEL PRESSER, IMPREGNATING TANK OPERATOR
[2021-01-18 09:11] VITALS: BP 124/69; PULSE 100; RESP 18; TEMP 35.9; O2SAT 93
[2021-01-18] MEDS: Pantoprazole Sodium 40 MG Tablet PO (09:28)
[2021-01-18] MEDS: Labetalol 100 MG Tablet PO ×2 (09:28→21:09)
[2021-01-18] MEDS: Magnesium Chloride 64 MG Delay Rel.Tablet 128 MG PO (09:28)
[2021-01-18] MEDS: Cholecalciferol (VIT D3) 25 MCG TABLET (1,000 UNITS) PO (09:28)
[2021-01-18] MEDS: Gabapentin 300 MG Capsule PO ×3 (09:29→16:50)
[2021-01-18] MEDS: Calcium Carbonate 500 MG Tablet PO ×2 (09:29→16:50)
[2021-01-18] MEDS: Losartan Potassium 25 MG Tablet PO (09:29)
[2021-01-18] MEDS: Aspirin E.C. 81 MG Tablet PO (09:29)
--- NOTE | 2021-01-18 13:20 | CASEMGMT ---
Social Work Note: JEREMIAH called patient's , Christos. He indicated he had visited with patient this morning. He said that patient is gonna complain about any SNF placement. Christos said that patient said that she did not want to go to [facility]. Christos said that he called [facility] but they do not do skilled level of care. Christos asked about the [facility] facility and JEREMIAH encouraged Christos to contact [facility] to see about an option to visit. Christos said that he would call [facility] and speak to staff. Christos said that patient will not want to go to a SNF but he said I have been through this many times with her in the past. JEREMIAH will continue to update patient. JEREMIAH and JEREMIAH Noriega met with patient in her room. Patient reports it is January 2021 and that she is at [facility]. Patient said that she did not want to go to [facility]. Discussed need for patient to get skilled Level of care. Discussed with patient that her is limited in his ability to care for her and she agreed . Patient then agreed to go to [facility] at discharge. JEREMIAH will keep patient and her updated regarding insurance precertification for patient to go to [facility]. Plan: [facility] at discharge pending precertification. Marya CARRERA
--- NOTE | 2021-01-18 13:48 | PN.HOSP_ITS ---
Subjective Subjective: No new complaints at this time. Objective Data Objective Data Vital Signs: Vital Signs Temp Pulse Resp BP Pulse Ox 35.9 C L 100 18 124/69 H 93 01/18/21 09:11 01/18/21 09:11 01/18/21 09:11 01/18/21 09:11 01/18/21 09:11 Oxygen Delivery Method Room Air Weight: 48.2 kg Body Mass Index (BMI) 20.0 Finger Stick Blood Glucose 114 Intake & Output: Intake and Output for Last 24 Hours 01/16/21 01/17/21 01/18/21 23:59 23:59 23:59 Intake Total 640 / 640 100 / 100 Balance 640 / 640 100 / 100 Physical Exam Narrative up in bed eating breakfast. Tremulous buttering her bread. Afebrile. Non-toxic. HEENT Head and Scalp: normocephalic Skin no rashes or lesions noted Neuro Sensorium / Orientation: awake and alert Psych affect normal Assessment & Plan Assessment/Plan (1) Physical debility: Status: Acute Code(s): R53.81 - Other malaise (2) Malnutrition: Status: Acute Code(s): E46 - Unspecified protein-calorie malnutrition Qualifiers: Malnutrition type: protein-calorie malnutrition Protein-calorie malnutrition severity: moderate Qualified Code(s): E44.0 - Moderate protein- calorie malnutrition Plan: * No focal deficits to suggest an acute stroke therefore no additional acute neurologic work-up will be performed during this hospitalization. * PT OT evaluate and treat. Patient will need [facility] facility upon discharge. * Patient with progressive decline in fairly young age where she has been using a walker for anywhere between 3 to 6 years. Patient had a fall in 2017 where she did suffer hip fractures. I am concerned the patient has a neurodegenerative process such as Parkinson's, Parkinson's SARS-CoV-2 multiple sclerosis. Recommend patient follow-up with a movement disorder specialist at [facility], [facility] or [facility] for more thorough evaluation and diagnosis and what medications would be of help. * Consult nutrition for further recommendations * VTE prophylaxis not indicated as patient is currently observation status. * To [facility] pending precertification. OBSV E&M: 55950 Subsequent observation care L2
[2021-01-18 15:10] VITALS: BP 149/76; PULSE 84; RESP 18; TEMP 36.7; O2SAT 96
--- NOTE | 2021-01-18 15:28 | CASEMGMT ---
GUTIERREZ PALAFOX in to discuss MAYA form with patient. RN VIVIENNE explained MAYA form to patient, patient voiced understanding. Patient signed MAYA Form and filed in chart. Patient provided with copy of signed MAYA form. Patient had no further questions or concerns.
[2021-01-18 21:01] VITALS: BP 170/87; PULSE 87; RESP 16; TEMP 37.1; O2SAT 96
[2021-01-18 21:03] VITALS: BP 166/77
[2021-01-18] MEDS: Acetaminophen 500 MG Tablet PO (21:09)
[2021-01-18] MEDS: traZODone 100 MG Tablet PO (21:09)
[2021-01-18] MEDS: Zolpidem Tartrate 5 MG Tablet 10 MG PO (21:57)
[2021-01-19 03:16] VITALS: BP 141/79; PULSE 78; RESP 18; TEMP 37.1; O2SAT 95
[2021-01-19 08:30] VITALS: BP 125/71; PULSE 102; RESP 18; TEMP 36.8; O2SAT 95
[2021-01-19] MEDS: Gabapentin 300 MG Capsule PO ×3 (08:33→17:29)
[2021-01-19] MEDS: Calcium Carbonate 500 MG Tablet PO ×2 (08:33→17:29)
[2021-01-19] MEDS: Cholecalciferol (VIT D3) 25 MCG TABLET (1,000 UNITS) PO (08:33)
[2021-01-19] MEDS: Aspirin E.C. 81 MG Tablet PO (08:33)
[2021-01-19] MEDS: Labetalol 100 MG Tablet PO ×2 (08:34→22:11)
[2021-01-19] MEDS: Losartan Potassium 25 MG Tablet PO (08:34)
[2021-01-19] MEDS: Pantoprazole Sodium 40 MG Tablet PO (08:34)
[2021-01-19] MEDS: Magnesium Chloride 64 MG Delay Rel.Tablet 128 MG PO (08:36)
[2021-01-19 08:38] VITALS: PULSE 102
--- NOTE | 2021-01-19 11:52 | CASEMGMT ---
JEREMIAH note: JEREMIAH called [facility]. Spoke to Hollie who advised that precertification has been submitted but is pending. Plan: [facility] at discharge
--- NOTE | 2021-01-19 15:18 | PN.HOSP_ITS ---
Subjective Subjective: no new events. Objective Data Objective Data Vital Signs: Vital Signs Temp Pulse Resp BP Pulse Ox 36.8 C 102 H 18 125/71 H 95 01/19/21 08:30 01/19/21 08:38 01/19/21 08:30 01/19/21 08:30 01/19/21 08:30 Oxygen Delivery Method Room Air Weight: 48.2 kg Body Mass Index (BMI) 20.0 Finger Stick Blood Glucose 114 Intake & Output: Intake and Output for Last 24 Hours 01/17/21 01/18/21 01/19/21 23:59 23:59 23:59 Intake Total 640 / 640 1110 / 1110 150 / 150 Output Total 301 / 301 250 / 250 Balance 640 / 640 809 / 809 -100 / -100 Physical Exam Narrative up in bed eating breakfast. Tremulous buttering her bread. Afebrile. Non-toxic. Const alert General Appearance: cooperative HEENT normocephalic, head/scalp atraumatic and moist oral mucous membranes Cardio regular rate, regular rhythm, S1 normal heart sound and S2 normal heart sound Extremity normal capillary refill and no clubbing, cyanosis or edema Skin no rashes or lesions noted General Skin Exam: no breakdown and turgor normal Lesions: no lesions Rashes: no rashes Psych affect normal Appearance: appropriate Mood & Affect: flat affect Assessment & Plan Assessment/Plan (1) Physical debility: Status: Acute Code(s): R53.81 - Other malaise (2) Malnutrition: Status: Acute Code(s): E46 - Unspecified protein-calorie malnutrition Qualifiers: Malnutrition type: protein-calorie malnutrition Protein-calorie malnutrition severity: moderate Qualified Code(s): E44.0 - Moderate protein- calorie malnutrition Plan: * No focal deficits to suggest an acute stroke therefore no additional acute neurologic work-up will be performed during this hospitalization. * PT OT evaluate and treat. Patient will need group home facility upon discharge. * Patient with progressive decline in fairly young age where she has been using a walker for anywhere between 3 to 6 years. Patient had a fall in 2017 where she did suffer hip fractures. I am concerned the patient has a neurodegenerative process such as Parkinson's, Parkinson's SARS-CoV-2 multiple sclerosis. Recommend patient follow-up with a movement disorder specialist at [facility] or [facility] for more thorough evaluation and diagnosis and what medications would be of help. * Consult nutrition for further recommendations * VTE prophylaxis not indicated as patient is currently observation status. * To [facility] pending precertification. * * Today spoke with the patient's was at bedside. Explained the concern for neurodegenerative process. He would prefer to follow-up with neurology at [facility]. Told him that it is certainly fine but I strongly recommended neurology follow-up irregardless where she follows up. Visit Charges Inpatient E&M: 67445 Subs Hosp L2
[2021-01-19 15:28] VITALS: BP 157/86; PULSE 82; RESP 18; TEMP 37; O2SAT 95
[2021-01-19] MEDS: Sodium Chloride 15ML DROPS 1 DRP OPHTHALMIC ×2 (15:29→22:11)
--- NOTE | 2021-01-19 16:40 | CASEMGMT ---
JEREMIAH Note: JEREMIAH called Christos Rice. Updated Mr. Rice that we are still waiting for precert from [facility]. He verbalized understanding. He voiced no issues or concerns. [facility] and spoke to Marguerite at [facility]. [facility] reports precertification is pending. JEREMIAH completed PASS. JEREMIAH placed PASS, COVID test form, transport form and green sheet on patient's chart in case precertification has been received over the weekend. Plan: [facility] at discharge, pending precertification.
--- NOTE | 2021-01-19 17:11 | CM.UR ---
JEREMIAH Note: JEREMIAH updated patient that she was accepted at [facility] but we continue to be waiting for precertification. Patient voiced no issues or concerns. Plan: Pending precertification received from insurance the plan is for patient to go to [facility] for skilled care.
[2021-01-19] MEDS: Acetaminophen 500 MG Tablet PO (19:54)
[2021-01-19 20:02] VITALS: PULSE 88
[2021-01-19 22:01] VITALS: BP 112/60; PULSE 88; RESP 16; TEMP 37.3; O2SAT 95
[2021-01-19] MEDS: Zolpidem Tartrate 5 MG Tablet 10 MG PO (22:11)
[2021-01-20 02:54] VITALS: BP 145/83; PULSE 76; RESP 16; TEMP 36.6; O2SAT 95
[2021-01-20 02:59] VITALS: PULSE 72
[2021-01-20] MEDS: Sodium Chloride 15ML DROPS 1 DRP OPHTHALMIC ×3 (05:32→21:23)
--- NOTE | 2021-01-20 07:23 | NURSING ---
Pt C/O pain shoulders, head - declines pain med @ this time
[2021-01-20 09:00] VITALS: BP 159/79; PULSE 83; RESP 18; TEMP 36.6; O2SAT 97
[2021-01-20] MEDS: Calcium Carbonate 500 MG Tablet PO ×2 (09:29→17:58)
[2021-01-20] MEDS: Cholecalciferol (VIT D3) 25 MCG TABLET (1,000 UNITS) PO (09:29)
[2021-01-20] MEDS: Labetalol 100 MG Tablet PO ×2 (09:29→21:22)
[2021-01-20] MEDS: Magnesium Chloride 64 MG Delay Rel.Tablet 128 MG PO (09:29)
[2021-01-20] MEDS: Gabapentin 300 MG Capsule PO ×3 (09:29→17:58)
[2021-01-20] MEDS: Pantoprazole Sodium 40 MG Tablet PO (09:29)
[2021-01-20] MEDS: Aspirin E.C. 81 MG Tablet PO (09:29)
[2021-01-20] MEDS: Losartan Potassium 25 MG Tablet PO (09:30)
[2021-01-20] MEDS: Potassium Chloride Oral Soln 20 MEQ/15 ML UDC PO (09:30)
--- NOTE | 2021-01-20 09:41 | PN.HOSP_ITS ---
Subjective Subjective: complains of back and leg pain, that was not effectively treated by acetaminophen. Objective Data Objective Data Vital Signs: Vital Signs Temp Pulse Resp BP Pulse Ox 36.6 C 72 16 145/83 H 95 01/20/21 02:54 01/20/21 02:59 01/20/21 02:54 01/20/21 02:54 01/20/21 02:54 Oxygen Delivery Method Room Air Weight: 106 lb 4.205 oz Body Mass Index (BMI) 20.0 Finger Stick Blood Glucose 114 Intake & Output: Intake and Output for Last 24 Hours 01/18/21 01/19/21 01/20/21 23:59 23:59 23:59 Intake Total 1110 / 1110 1250 / 1250 Output Total 301 / 301 500 / 500 500 / 500 Balance 809 / 809 750 / 750 -500 / -500 Physical Exam Const alert, oriented x3 and no apparent distress Neuro Sensorium / Orientation: awake and alert Assessment & Plan Assessment/Plan (1) Physical debility: Status: Acute Code(s): R53.81 - Other malaise (2) Malnutrition: Status: Acute Code(s): E46 - Unspecified protein-calorie malnutrition Qualifiers: Malnutrition type: protein-calorie malnutrition Protein-calorie malnutrition severity: moderate Qualified Code(s): E44.0 - Moderate protein- calorie malnutrition Plan: * No focal deficits to suggest an acute stroke therefore no additional acute neurologic work-up will be performed during this hospitalization. * PT OT evaluate and treat. Patient will need group home facility upon discharge. * Patient with progressive decline in fairly young age where she has been using a walker for anywhere between 3 to 6 years. Patient had a fall in 2017 where she did suffer hip fractures. I am concerned the patient has a neurodegenerative process such as Parkinson's, Parkinson's SARS-CoV-2 multiple sclerosis. Recommend patient follow-up with a movement disorder specialist at [facility], [facility] or [facility] for more thorough evaluation and diagnosis and what medications would be of help. * Consult nutrition for further recommendations * VTE prophylaxis not indicated as patient is currently observation status. * To [facility] pending precertification. * * 01/19: spoke with the patient's was at bedside. Explained the concern for neurodegenerative process. He would prefer to follow-up with neurology at [facility]. Told him that it is certainly fine but I strongly recommended neurology follow-up irregardless where she follows up. * 01/20: pt states that acetaminophen not helping her back pain. Taking 500. Will change to 1000 TID. Has not taken oxycodone since the . States that she cannot take NSAIDs due to GI issues. Visit Charges Inpatient E&M: 67908 Subs Hosp L1
[2021-01-20] MEDS: Acetaminophen 500 MG Tablet 1000 MG PO (12:16)
[2021-01-20 14:46] VITALS: BP 160/80; PULSE 81; RESP 18; TEMP 36.8; O2SAT 97
[2021-01-20] MEDS: oxyCODONE 5 MG Tablet PO ×2 (14:53→21:21)
[2021-01-20 21:09] VITALS: BP 120/67; PULSE 83; RESP 16; TEMP 36.7; O2SAT 97
[2021-01-21 00:03] VITALS: BP 113/68; PULSE 77; RESP 16; TEMP 36.5; O2SAT 96
[2021-01-21] MEDS: Zolpidem Tartrate 5 MG Tablet 10 MG PO ×2 (00:05→21:40)
[2021-01-21 05:27] VITALS: BP 135/71; PULSE 72; RESP 16; TEMP 36.6; O2SAT 97
[2021-01-21] MEDS: Sodium Chloride 15ML DROPS 1 DRP OPHTHALMIC ×3 (05:30→21:40)
[2021-01-21] MEDS: Calcium Carbonate 500 MG Tablet PO ×2 (08:35→17:37)
[2021-01-21] MEDS: Cholecalciferol (VIT D3) 25 MCG TABLET (1,000 UNITS) PO (08:35)
[2021-01-21] MEDS: Aspirin E.C. 81 MG Tablet PO (08:35)
[2021-01-21] MEDS: Gabapentin 300 MG Capsule PO ×3 (08:35→17:37)
[2021-01-21] MEDS: Labetalol 100 MG Tablet PO ×2 (08:36→21:40)
[2021-01-21] MEDS: Pantoprazole Sodium 40 MG Tablet PO (08:36)
[2021-01-21] MEDS: Losartan Potassium 25 MG Tablet PO (08:36)
[2021-01-21] MEDS: Magnesium Chloride 64 MG Delay Rel.Tablet 128 MG PO (08:36)
[2021-01-21] MEDS: oxyCODONE 5 MG Tablet PO ×2 (08:39→17:36)
[2021-01-21 10:37] VITALS: BP 143/76; PULSE 80; RESP 18; TEMP 36.1; O2SAT 97
--- NOTE | 2021-01-21 12:20 | PN.HOSP_ITS ---
Subjective Subjective: no new complaints. pain overall improved. Objective Data Objective Data Vital Signs: Vital Signs Temp Pulse Resp BP Pulse Ox 36.1 C L 80 18 143/76 H 97 01/21/21 10:37 01/21/21 10:37 01/21/21 10:37 01/21/21 10:37 01/21/21 10:37 Oxygen Delivery Method Room Air Weight: 106 lb 4.205 oz Body Mass Index (BMI) 20.0 Finger Stick Blood Glucose 114 Intake & Output: Intake and Output for Last 24 Hours 01/19/21 01/20/21 01/21/21 23:59 23:59 23:59 Intake Total 1250 / 1250 1080 / 1080 150 / 150 Output Total 500 / 500 500 / 500 200 / 200 Balance 750 / 750 580 / 580 -50 / -50 Physical Exam Narrative up in bed eating breakfast. Tremulous buttering her bread. Afebrile. Non-toxic. Const alert, oriented x3 and no apparent distress General Appearance: cooperative HEENT normocephalic, head/scalp atraumatic and moist oral mucous membranes Eyes PERRL Eyes Narrative: Impaired saccades vertically. Neck no lymphadenopathy and no carotid bruits Cardio regular rate, regular rhythm, S1 normal heart sound and S2 normal heart sound GI normal to inspection, nondistended, normoactive bowel sounds, soft to palpation, non-tender and non-distended Extremity normal capillary refill and no clubbing, cyanosis or edema Skin no rashes or lesions noted General Skin Exam: no breakdown and turgor normal Lesions: no lesions Rashes: no rashes Neuro CN's II-XII intact bilaterally Neuro Narrative: Coordination abnormal with [id number] patient with ataxia bilaterally upper extremity Sensorium / Orientation: awake and alert Motor Exam: strength 5/5 throughout Psych affect normal Appearance: appropriate Mood & Affect: flat affect Assessment & Plan Assessment/Plan (1) Physical debility: Status: Acute Code(s): R53.81 - Other malaise (2) Malnutrition: Status: Acute Code(s): E46 - Unspecified protein-calorie malnutrition Qualifiers: Malnutrition type: protein-calorie malnutrition Protein-calorie malnutrition severity: moderate Qualified Code(s): E44.0 - Moderate protein- calorie malnutrition Plan: * No focal deficits to suggest an acute stroke therefore no additional acute neurologic work-up will be performed during this hospitalization. * PT OT evaluate and treat. Patient will need [facility] facility upon discharge. * Patient with progressive decline in fairly young age where she has been using a walker for anywhere between 3 to 6 years. Patient had a fall in 2017 where she did suffer hip fractures. I am concerned the patient has a neurodegenerative process such as Parkinson's, Parkinson's SARS-CoV-2 multiple sclerosis. Recommend patient follow-up with a movement disorder specialist at [facility], [facility] or [facility] for more thorough evaluation and diagnosis and what medications would be of help. * Consult nutrition for further recommendations * VTE prophylaxis not indicated as patient is currently observation status. * To [facility] pending precertification. * * 01/19: spoke with the patient's was at bedside. Explained the concern for neurodegenerative process. He would prefer to follow-up with neurology at [facility]. Told him that it is certainly fine but I strongly recommended neurology follow-up irregardless where she follows up. * 01/20: pt states that acetaminophen not helping her back pain. Taking 500. Will change to 1000 TID. Has not taken oxycodone since the . States that she cannot take NSAIDs due to GI issues. Visit Charges OBSV E&M: 03754 Subsequent observation care L2
--- NOTE | 2021-01-21 13:57 | PCM.TXEXTCAR ---
Diet 01/17/21 09:06 Diet: Regular - General Food consistency:: Regular Liquid Consistency:: Regular/Thin Type of Dietary Supplement:: Ensure Enlive Is pt able to select menu?: Yes Diet Comments: PLEASE DO NOT SEND ENSURE - PT REFUSING Routine Orders/Code Status Code Status: DNRCC-A (no intubation) Therapies Weight Bearing: Full weight bearing Physical Therapy: Eval and Treat Occupational Therapy: Eval and Treat Problem/Diagnosis (1) Physical debility: Status: Acute (2) Malnutrition: Status: Acute (3) DJD (degenerative joint disease), lumbar: Status: Chronic Allergies/Procedures Done in Hospital Allergies lorazepam [From Ativan] Adverse Reaction (Severe, Verified 09/30/19 14:54) tremors oxybutynin Adverse Reaction (Severe, Verified 09/30/19 14:54) Dry Mouth acetaminophen [From Vicodin] Adverse Reaction (Verified 09/30/19 14:54) Unknown amitriptyline HCl [From Elavil] Adverse Reaction (Verified 09/30/19 14:54) Unknown amlodipine besylate [From Norvasc] Adverse Reaction (Verified 09/30/19 14:54) Unknown ciprofloxacin [From Cipro] Adverse Reaction (Verified 09/30/19 14:54) Unknown ciprofloxacin HCl [From Cipro] Adverse Reaction (Verified 09/30/19 14:54) Unknown erythromycin base [Erythromycin Base] Adverse Reaction (Verified 09/30/19 14:54) Unknown hydrocodone bitartrate [From Vicodin] Adverse Reaction (Verified 09/30/19 14:54) Unknown lisinopril Adverse Reaction (Verified 09/30/19 14:54) Unknown metoprolol [From Lopressor] Adverse Reaction (Verified 09/30/19 14:54) Unknown morphine Adverse Reaction (Verified 09/30/19 14:54) Unknown Procedures: None Type of Care/Length of Stay Estimated LOS: Convalescent Care Less Than 30 days Type of Care Needed: Skilled Rehab Potential: Fair Prognosis: Fair Additional Orders/Day of Discharge Day of Discharge: 01/22/21 Dietary and Speech Recommendations Dietitian Recommendations/Changes: Will monitor PO as established, wt, labs and follow-up. Possibly consult DIVER'S TENDER for swallowing eval. Will continue liberalized regular diet and encourage intake at meals. Will change ensure to w/ meals--no chocolate. Assist with meals as needed to optimize intake. Follow Up Care Please follow up with your Primary Care Physician in: 2 weeks Please Follow Up With: Neurology When: 1-2 months Discharge Plan Admission Admit Date/Time: 01/17/21 09:05 Attending Provider: Jorge Carmona Primary Care Provider: Yara Birmingham Discharge Orders/Prescriptions Prescriptions: New acetaminophen 500 mg Tablet 1,000 mg PO Q8H PRN PRN (Reason: Pain Score 1-10) Qty: 0 RF: 0 pantoprazole 40 mg Tablet,Delayed Release (Dr/Ec) 40 mg PO DAILY Qty: 1 RF: 0 gabapentin 300 mg Capsule 300 mg PO TIDCM Qty: 0 RF: 0 Continued irbesartan [Avapro] 75 mg tablet 75 mg PO DAILY RF: 0 aspirin [Adult Low Dose Aspirin] 81 mg tablet,delayed release (DR/EC) 81 mg PO DAILY RF: 0 magnesium oxide 400 mg (241.3 mg magnesium) tablet 400 mg PO DAILY RF: 0 labetalol 100 MG tablet 100 mg PO BID RF: 0 calcium carbonate 600 MG tablet 1 tab PO BID RF: 0 trazodone 100 mg Tablet 100 - 200 mg PO QHS PRN (Reason: Insomnia) RF: 0 cholecalciferol (vitamin D3) [Vitamin D3] 25 mcg (1,000 unit) Capsule 25 mcg PO DAILY RF: 0 sodium chloride 5 % Drops 1 drp OPHTHALMIC (EYE) TID RF: 0 diazepam [Valium] 2 mg tablet 2 mg PO BID PRN (Reason: Anxiety or spasms) Qty: 6 RF: 0 oxycodone 5 mg Tablet 5 mg PO Q6H PRN (Reason: Pain) 3 Days Qty: 12 RF: 0 Discontinued acetaminophen 500 mg tablet 500 mg PO Q6H PRN (Reason: Pain) RF: 0 gabapentin 400 mg Capsule 400 mg PO TID RF: 0 losartan 50 mg Tablet 50 mg PO DAILY RF: 0 olanzapine [Zyprexa] 5 mg Tablet 5 mg PO QHS RF: 0 hydroxyzine HCl 25 mg Tablet 25 mg PO Q6H PRN PRN (Reason: Itching) RF: 0 No Action omeprazole magnesium [Prilosec OTC] 20 mg Tablet,Delayed Release (Dr/Ec) 20 mg PO DAILY RF: 0 Referrals: Yara Birmingham DO [Primary Care Provider] - Disposition Patient Disposition: Senior Living Facility
[2021-01-21 16:30] VITALS: BP 156/77; PULSE 98; RESP 18; TEMP 36.6; O2SAT 95
[2021-01-21 21:30] VITALS: BP 147/88; PULSE 87; RESP 18; TEMP 36.7; O2SAT 97
[2021-01-22 02:13] VITALS: BP 129/80; PULSE 88; RESP 18; TEMP 36.5; O2SAT 92
[2021-01-22] MEDS: Sodium Chloride 15ML DROPS 1 DRP OPHTHALMIC ×2 (06:52→12:59)
[2021-01-22] MEDS: Aspirin E.C. 81 MG Tablet PO (07:59)
[2021-01-22] MEDS: Calcium Carbonate 500 MG Tablet PO (08:00)
[2021-01-22] MEDS: Gabapentin 300 MG Capsule PO ×2 (08:00→11:45)
[2021-01-22] MEDS: Cholecalciferol (VIT D3) 25 MCG TABLET (1,000 UNITS) PO (08:00)
[2021-01-22] MEDS: Losartan Potassium 25 MG Tablet PO (08:00)
[2021-01-22] MEDS: Labetalol 100 MG Tablet PO (08:01)
[2021-01-22] MEDS: Potassium Chloride Oral Soln 20 MEQ/15 ML UDC PO (08:01)
[2021-01-22] MEDS: Magnesium Chloride 64 MG Delay Rel.Tablet 128 MG PO (08:01)
[2021-01-22] MEDS: Pantoprazole Sodium 40 MG Tablet PO (08:01)
[2021-01-22] MEDS: oxyCODONE 5 MG Tablet PO (08:03)
[2021-01-22 08:07] VITALS: BP 141/93; PULSE 92; RESP 16; TEMP 36.9; O2SAT 94
--- NOTE | 2021-01-22 08:22 | PCM.DC.SUM ---
Providers Date of Admission: 01/17/21 Primary Care Physician: Dr. Yara Birmingham DO Reason For Visit: WEAKNESS Diagnosis Discharge Diagnosis (1) Physical debility: Status: Acute Code(s): R53.81 - Other malaise (2) Malnutrition: Status: Acute Code(s): E46 - Unspecified protein-calorie malnutrition Qualifiers: Malnutrition type: protein-calorie malnutrition Protein-calorie malnutrition severity: moderate Qualified Code(s): E44.0 - Moderate protein-calorie malnutrition (3) DJD (degenerative joint disease), lumbar: Status: Chronic Code(s): M47.816 - Spondylosis without myelopathy or radiculopathy, lumbar region Medications at Discharge Home Medications labetalol 100 mg PO BID 11/13/13 calcium carbonate 1 tab PO BID 12/25/17 aspirin 81 mg tablet,delayed release 81 mg PO DAILY 09/29/19 irbesartan 75 mg tablet 75 mg PO DAILY 09/30/19 magnesium oxide 400 mg (241.3 mg magnesium) tablet 400 mg PO DAILY tab 09/30/19 cholecalciferol (vitamin D3) [Vitamin D3] 25 mcg PO DAILY 01/17/21 omeprazole magnesium [Prilosec OTC] 20 mg PO DAILY 01/17/21 trazodone 100 - 200 mg PO QHS PRN 01/17/21 sodium chloride 1 drp OPHTHALMIC (EYE) TID 01/19/21 acetaminophen 1,000 mg PO Q8H PRN PRN #0 tab 01/21/21 diazepam 2 mg PO BID PRN #6 tab 01/21/21 gabapentin 300 mg PO TIDCM #0 cap 01/21/21 oxycodone 5 mg PO Q6H PRN 3 Days #12 tab 01/21/21 Hospital Course Operations None Procedures None Summary of Care Provided Minutes Spent on Discharge: 35 Hospital Course: Discharge diagnoses: 1. Mechanical fall, frequent secondary to suspected #2 2. Suspected underlying neurodegenerative process, unclear type 3. Chronic severe protein calorie malnutrition likely associated with #2 4. History of prior DVT 5. Chronic back pain status post kyphoplasty 6. Chronic neuropathy 7. Chronic COPD 8. Hypertension 9. GERD 10. Anxiety and depression The patient is a 65 y/o F w/ PMHx: Chronic back pain, Hx DVT, Chronic COPD, HTN, Anxiety and Depression, GERD, Polyneuropathy who presented to the [facility] ED on 01/17/21 with history of frequent ongoing falls, most recently the day prior to ED presentation with mild dizziness and fall with no loss of consciousness nor any trauma to the head with outside ED facility evaluation with CT head at that time as well as neck and plain films of the hip and chest which were all unremarkable in addition to unremarkable labs. Patient with a longstanding history of debility with usage of a walker over the last 3 to 6 years. Patient however noted upon recent presentation that she has had more debility in addition to upper extremity tremors with difficulty writing secondary over the last several months although worse over the last 4 to 6 weeks. Patient was admitted to the medical surgical floor, PT and OT were consulted with recommendation for long term facility which was set up. Patient with no evidence of any focal deficits therefore acute neurological work-up at presentation was not performed but physician added admission and up to discharge discussed and strongly encouraged follow-up with neurologist with plan to follow-up at [facility] secondary to concern for underlying neurodegenerative process possibly Parkinson's, multiple sclerosis or other etiology to which patient and family were amenable. half-way facility placement was obtained and patient was discharged in stable condition. DAY OF DISCHARGE PROGRESS NOTE: Subjective: Patient without acute event overnight per self and nursing report. Patient notes discomfort secondary to recent falls has improved. Patient still does have mild tremors especially with activity. Patient denies fever, chills, nausea, emesis, abdominal pain, chest pain or dyspnea. Patient agreeable to discharge to long term facility for ongoing therapies. Patient will be discharged with follow-up with primary care physician within 3-5 days in addition to strongly recommended follow-up with neurology and per current plan [facility] neurology given concern for possible underlying neurodegenerative process. Objective: T 98.3, heart rate 78, BP 140/86, respiratory rate 16, 94% on room air. Physical Examination: General: awake, alert, oriented x 3 and cooperative, seated upright in the medical surgical bedside chair, NAD. Skin: normal color, turgor, no icterus, cyanosis. HEENT: AT/NC, EOMI, PERRLA, MMM. Lungs: Mildly diminished, greater bases, appropriate effort, no rales, ronchi or wheezing; Heart: Regular rate and rhythm; no gallop, rub audible. Abdomen: soft, NTTP, ND, normal BS. Extremities: no cyanosis, clubbing, or edema. Neurological: patient awake, alert, oriented x 3; cognitive function appears intact upon questioning,; pupils equally reactive to light and accomodation; cranial nerves II-XII grossly normal, moving all 4 extremities, strength appropriate although generalized weakness present, bilateral upper extremity mild tremors noted with difficulty with [id number], appropriate [id number], negative Babinski. Psychiatric: affect appears flat, no acute evidence of depressive or anxiety feelings. Assessment and Plan: Please see hospital summary above. D/C Instructions Please follow up with your Primary Care Physician in: 2 weeks Please Follow Up With: Neurology Meaningful Use Info Meaningful Use Diagnoses (Choose all that apply): None applicable Discharge Plan Admission Admit Date/Time: 01/17/21 09:05 Attending Provider: Sharron Noe Primary Care Provider: Yara Birmingham Discharge Orders/Prescriptions Prescriptions: New acetaminophen 500 mg Tablet 1,000 mg PO Q8H PRN PRN (Reason: Pain Score 1-10) Qty: 0 RF: 0 gabapentin 300 mg Capsule 300 mg PO TIDCM Qty: 0 RF: 0 diazepam 2 mg Tablet 2 mg PO BID PRN (Reason: anxiety) Qty: 6 RF: 0 oxycodone 5 mg Tablet 5 mg PO Q6H PRN (Reason: Pain) 3 Days Qty: 12 RF: 0 Continued irbesartan [Avapro] 75 mg tablet 75 mg PO DAILY RF: 0 aspirin [Adult Low Dose Aspirin] 81 mg tablet,delayed release (DR/EC) 81 mg PO DAILY RF: 0 magnesium oxide 400 mg (241.3 mg magnesium) tablet 400 mg PO DAILY RF: 0 labetalol 100 MG tablet 100 mg PO BID RF: 0 calcium carbonate 600 MG tablet 1 tab PO BID RF: 0 trazodone 100 mg Tablet 100 - 200 mg PO QHS PRN (Reason: Insomnia) RF: 0 cholecalciferol (vitamin D3) [Vitamin D3] 25 mcg (1,000 unit) Capsule 25 mcg PO DAILY RF: 0 sodium chloride 5 % Drops 1 drp OPHTHALMIC (EYE) TID RF: 0 Discontinued acetaminophen 500 mg tablet 500 mg PO Q6H PRN (Reason: Pain) RF: 0 diazepam [Valium] 2 mg tablet 2 mg PO BID PRN (Reason: Anxiety or spasms) RF: 0 gabapentin 400 mg Capsule 400 mg PO TID RF: 0 losartan 50 mg Tablet 50 mg PO DAILY RF: 0 olanzapine [Zyprexa] 5 mg Tablet 5 mg PO QHS RF: 0 hydroxyzine HCl 25 mg Tablet 25 mg PO Q6H PRN PRN (Reason: Itching) RF: 0 oxycodone 5 mg Tablet 5 mg PO Q6H PRN (Reason: Pain) RF: 0 No Action omeprazole magnesium [Prilosec OTC] 20 mg Tablet,Delayed Release (Dr/Ec) 20 mg PO DAILY RF: 0 Referrals: Yara Birmingham DO [Primary Care Provider] - Disposition Disposition (needs filled in before D/C Order can be placed): [facility] Facility Visit Charges Inpatient E&M: 69892 Disch Hosp
--- NOTE | 2021-01-22 10:01 | CASEMGMT ---
Social Work Note SW placed a call to [facility] and spoke with Gahda. Admissions is not available. SW left message for admissions to call this worker back regarding pre-cert. SW waiting for call back. Plan: [facility] pending pre-cert oLtus Noriega [employer]URITY SERVICES MANAGER, [employer]ISTER WINDER
--- NOTE | 2021-01-22 11:37 | PHA.DC.MR ---
Pharmacy Service has performed discharge medication reconciliation for this patient upon transfer to [facility]. Home Medications labetalol 100 mg PO BID 11/13/13 calcium carbonate 1 tab PO BID 12/25/17 aspirin 81 mg tablet,delayed release 81 mg PO DAILY 09/29/19 irbesartan 75 mg tablet 75 mg PO DAILY 09/30/19 magnesium oxide 400 mg (241.3 mg magnesium) tablet 400 mg PO DAILY tab 09/30/19 cholecalciferol (vitamin D3) [Vitamin D3] 25 mcg PO DAILY 01/17/21 omeprazole magnesium [Prilosec OTC] 20 mg PO DAILY 01/17/21 trazodone 100 - 200 mg PO QHS PRN 01/17/21 sodium chloride 1 drp OPHTHALMIC (EYE) TID 01/19/21 acetaminophen 1,000 mg PO Q8H PRN PRN #0 tab 01/21/21 diazepam 2 mg PO BID PRN #6 tab 01/21/21 gabapentin 300 mg PO TIDCM #0 cap 01/21/21 oxycodone 5 mg PO Q6H PRN 3 Days #12 tab 01/21/21 The patient's discharge medication list was reviewed for discrepancies and discrepancies were resolved.
[2021-01-22 11:58] VITALS: BP 140/86; PULSE 78; RESP 16; TEMP 36.8; O2SAT 94
--- NOTE | 2021-01-22 13:18 | CASEMGMT ---
Social Work Note JEREMIAH received message from Tatum at [facility] stating pre-cert was obtained, pt can discharge today. Pt will need COVID test. Physician updated. JEREMIAH faxed completed discharge paperwork to [facility] including transfer to extended care facility, signed medication list, any scripts, COVID test, COVID tool and PAS/RR. Original in SNF folder and copy on pt's chart. JEREMIAH spoke with RN, pt can transport via wheelchair van. Pt is listed has having [facility] Medicare [employer]. JEREMIAH placed a call to [facility] and spoke with Daniel. Daniel states any [facility] policies have to go through [employer] for [facility]. JEREMIAH placed a call to [facility] and spoke with Shmuel. Shmuel states pt is not in their [facility] system. JEREMIAH placed a call back to [facility] and spoke with Ngoc. Ngoc states they are able to transport pt via wheelchair van at 2:30pm. JEREMIAH scheduled transport. SW in to speak with pt. JEREMIAH updated pt on approval to [facility], discharge to [facility], and transportation time. Pt states she will call her to update him as she wants him to bring her some clothes. JEREMIAH placed a call to [facility] and spoke with Ghada. Ghada states Tatum is not available, SW updated Ghada on transportation time. JEREMIAH also placed a call to pt's Christos and updated him on discharge and transportation time. Christos confirms he spoke with pt and pt had updated him. JEREMIAH updated RN on transportation time. Plan: [facility] skilled with Physician's transporting pt via wheelchair van at 2:30pm Lotus Noriega MSW, CARE TAKER
[2021-01-22] MEDS: diazePAM 2 MG Tablet PO (14:05)
== END 2021-01-22 14:45 | disposition skilled nursing facility (03) ==
PROVIDERS: Admitting Provider Internal Medicine; PCP Family Medicine; Referring Provider Internal Medicine; Visit Provider Family Medicine
DX: R53.81 Other malaise (principal); R25.1 Tremor, unspecified; E43 Unspecified severe protein-calorie malnutrition; J44.9 Chronic obstructive pulmonary disease, unspecified; K21.9 Gastro-esophageal reflux disease without esophagitis; I10 Essential (primary) hypertension; M19.90 Unspecified osteoarthritis, unspecified site; M47.816 Spondylosis without myelopathy or radiculopathy, lumbar region; G62.9 Polyneuropathy, unspecified; Z79.82 Long term (current) use of aspirin; Z79.899 Other long term (current) drug therapy; Z87.891 Personal history of nicotine dependence; Z86.718 Personal history of other venous thrombosis and embolism; Z66 Do not resuscitate; Z68.20 Body mass index [BMI] 20.0-20.9, adult; G89.29 Other chronic pain; F41.9 Anxiety disorder, unspecified; F32.9 Major depressive disorder, single episode, unspecified; Z91.81 History of falling
CPT/HCPCS: 87426; 92610; 97110; 97116; 97162; 97166; 97530; 97535; 97802; 99218; A4216; G0378; G0379

== ENCOUNTER 2021-10-04 12:18 | Outpatient (CLI) | payer MEDICARE, SELFPAY ==
--- NOTE | 2021-10-04 12:20 | MRI_ITS ---
STUDY: MR Brain WO/W Contrast 10/04/2021 4:31 PM REASON FOR EXAM: Female, 66 years old. Dementia COMPARISON: CT head 12/15/2013 TECHNIQUE: Standardized multiplanar fat and water weighted pulse sequences were obtained. MR Brain WO/W Contrast FINDINGS: There is mild cerebral atrophy with widening of the extra-axial spaces and ventricular dilatation. There are a limited number of small white matter hyperintensities, distributed throughout the deep white matter tracts of the cerebral hemispheres, consistent with mild chronic white matter ischemic changes. There is mild prominence of the vermian folia, consistent with atrophy of the vermis. The cerebellar hemispheres are normal. Normal bilateral basal ganglia. Normal thalami. There is no extra-axial fluid accumulation. Normal flow voids within the major intracranial circulation suggesting patency by spin echo criteria. Normal sella turcica, pituitary gland, infundibular stalk, optic chiasm and hypothalamus. Normal tectal plate and pineal gland. Normal midbrain, wilberto and medulla. Normal basal cisterns. Normal bilateral temporal bones. Normal bilateral internal auditory canals. No demonstrated orbital abnormality, within the constraints of a routine brain study. Normal visualized paranasal sinuses. Normal calvarium and skull base. Normal visualized soft tissue structures. Normal visualized upper cervical spine. Aspect score 10 IMPRESSION: (NOT LISTED IN ORDER OF SIGNIFICANCE) There are no acute intracranial findings. Electronically Signed: Lucius Zayas MD at 16:32 EST , Service support , MRI/Brain W/WO Contrast
--- NOTE | 2021-10-04 12:20 | MRI_ITS ---
STUDY: MR Spine Lumbar W/O Contrast 10/04/2021 4:23 PM REASON FOR EXAM: Female, 66 years old. Back pain Low Back Pain TECHNIQUE: MR Spine Lumbar W/O Contrast Standardized fat and water weighted pulse sequences were obtained. COMPARISON: 14 FINDINGS: Normal lumbar lordosis. There is no substantial scoliosis. Normal conus medullaris that terminates at the L1. There are hyperintense T2 signal in both kidneys. These are consistent for cysts. No follow up required. L1-2: Loss of intervertebral disc height. There is endplate spondylosis of the vertebral body. Normal central canal and intervertebral neuroforamina. There is bilateral facet arthropathy. L2-3: Loss of intervertebral disc height. There is endplate spondylosis of the vertebral body. Normal central canal and intervertebral neuroforamina. There is bilateral facet arthropathy. There is bilateral ligamentum flavum thickening. L3-4: Loss of intervertebral disc height. There is endplate spondylosis of the vertebral body. Narrowing of the bilateral intervertebral neuroforamina. Compression of exiting nerve roots. There is bilateral ligamentum flavum thickening. Disc bulge. No spinal stenosis. There is bilateral facet arthropathy. Slight increased compression deformity superior endplate of L3 since the prior study. L4-5: Loss of intervertebral disc height. There is endplate spondylosis of the vertebral body. Narrowing of the left intervertebral neuroforamina. There is bilateral ligamentum flavum thickening. Central disc herniation. No spinal stenosis. There is bilateral facet arthropathy. Vertebral plasty changes at L4. L5-S1: Normal endplates. Normal disc height and morphology. Normal central canal and intervertebral neuroforamina. Normal visualized sacral ala. Normal visualized paraspinous soft tissue structures. MRI/Spine Lumbar (Routine) IMPRESSION: Multilevel degenerative changes, as described above. Slight increased compression deformity superior endplate of L3 since the prior study. Disc herniation at L4-5. Electronically Signed: Lucius Zayas MD at 16:30 EST , Service support ,
[2021-10-04 12:56] LABS: CREATININE FINGERSTICK 0.7 mg/dL (0.55-1.02); EGFR FINGERSTICK > 60.0000 mL/min (>60)
== END 2021-10-04 23:59 | disposition short-term general hospital (02) ==
PROVIDERS: PCP Family Medicine; Visit Provider Psychiatry & Neurology Neurology
DX: F03.90 Unspecified dementia, unspecified severity, without behavioral disturbance, psychotic disturbance, mood disturbance, and anxiety (principal); M54.50 Low back pain, unspecified; G62.9 Polyneuropathy, unspecified
CPT/HCPCS: 70553; 72148; A9575